=== PATIENT | female | born 1990 | race Caucasian/White ===

== ENCOUNTER 2018-12-04 12:35 | Outpatient (CLI) | payer SELFPAY ==
[2018-12-04 12:45] VITALS: BMI 40.9
--- NOTE | 2018-12-08 22:34 | OB.TRI.NOTE ---
History of Present Illness Date of Service: 12/04/18 Was patient seen by the physician?: No Reason For Visit: DECRECEASED MOVEMENNT Final ANA: 12/13/18 Gestational age: 39 Weeks and 2 Days Allergies acetaminophen [From Tylenol] Adverse Reaction (Verified 12/08/18 07:46) Vomiting ciprofloxacin Adverse Reaction (Verified 12/08/18 07:46) Rash - Pertinent Past Medical History Medical History: Past Medical History (Last Updated 12/08/18 @ 10:48 by Robel Diggs) Endometrial hyperplasia Hypothyroid Impression/Plan NST for false labor
== END 2018-12-04 14:05 | disposition home or self-care (01) ==
LOC: WPOUT 12:42 → WP 12-05 11:16
PROVIDERS: Visit Provider Obstetrics & Gynecology
DX: O47.1 False labor at or after 37 completed weeks of gestation (principal); Z3A.39 39 weeks gestation of pregnancy
CPT/HCPCS: 59025; 59050; 99218; G0378

== ENCOUNTER 2018-12-08 06:52 | Inpatient (IN) | payer SELFPAY ==
[2018-12-08 07:43] VITALS: BMI 41.1
[2018-12-08] MEDS: Lactated Ringers 1,000 ML 50 ML IV ×3 (07:50→18:03)
[2018-12-08 08:11] LABS: Hematocrit 36.9 % (37-47); Hemoglobin 12.9 g/dl (12.0-15.0); Mean Corpuscular Hgb 32.3 pg (27.0-32.0); Mean Corpuscular Volume 92.3 fL (81-99); Mean Platelet Vol. 10.2 fl (6.2-12.0); Platelet Count 291 K/mm3 (150-450); RBC Distribution Width CV 12.8 % (11.6-14.6); RBC Distribution Width SD 42.4 fl (35.1-43.9); White Blood Count 12.8 K/mm3 (4.4-11.0)
[2018-12-08] MEDS: Oxytocin 30 units/NS 500 ml 30 UNITS/500 ML IV.SOLN IV (08:16)
[2018-12-08 08:17] LABS: Scan Indicated on CBC? Y/N NO
--- NOTE | 2018-12-08 10:47 | PCM.HP.OB ---
History Date of Admission: 12/08/18 Final ANA: 12/13/18 Gestational age: 39 Weeks and 2 Days History of this : This is a 28 year-old, G [], P [], at 39 weeks gestational age. Allergies acetaminophen [From Tylenol] Adverse Reaction (Verified 12/08/18 07:46) Vomiting ciprofloxacin Adverse Reaction (Verified 12/08/18 07:46) Rash Home Medications: Home Medications Vit No.130/Iron/Folic [ Tablet] 1 each PO DAILY 12/04/18 Thyroid [[place] Thyroid] 60 mg PO DAILY 12/04/18 Smoking Status: Current every day smoker Number of Fetus(es): 1 Heart Tracin with mod variability, accels, variables TOCO Analysis: Q 3 min but somewhat irregular History Past Pregnancies: Past Pregnancies Delivery Date Name GA/Weeks Outcome Route Weight Infant Gender Labor Length Anesthesia Delivery Location Provider FOB Labs: GBS positive Elevated glucola at 135 - patient declined 3hr GTT. She monitored home blood sugars & the majority were normal. See [facility] H&P for complete PNB Physical Exam General: Alert, Oriented x3 Abdomen: Soft, Non Tender, Non-Distended, Gravid Estimated gestational size: Appropriate for gestational size Presentation: Cephalic Cervix Dilation (cm): 3.5 - AROM clear amniotic fluid. FSE & IUPC placed. Station: -2 Effacement (%): 80 Assessment/Plan This is a 28 year-old, @39&2 for elective induction Admit to L&D Induction - continue pitocin, s/p AROM GBS positive - pcn per protocol EFW - less than 4500g, patient with adequate pelvis Pain - declines epidural at this time Routine care
[2018-12-08] MEDS: fentaNYL-bupivacaine (epidural) 100 ML BAG EPIDURAL ×3 (13:39→23:20)
[2018-12-08 16:05] LABS: Bedside Glucose 77 mg/dL (70-110)
--- NOTE | 2018-12-08 17:30 | PCM.PN.BLA ---
Progress Note S: Patient comfortable with epidural O: cvx - 6-7/80/-1 fhts 140 with mod variability, early & variable decels tocos - 2-3 min A&P: continue induction FWB - monitoring is overall reassuring
[2018-12-08] MEDS: Amnioinfusion- 0.9% NS 1,000 ML IV.SOLN. 1000 ML INTRA-UTER (18:44)
[2018-12-09] MEDS: Oxytocin 30 units/NS 500 ml 30 UNITS/500 ML IV.SOLN 334 UNITS IV (00:01)
--- NOTE | 2018-12-09 00:11 | PCM.OB.VAG ---
Vaginal Delivery Maternal Presentation: Elective Induction Method of Induction: Pitocin, Amniotomy Amniotic Membrane Rupture Type: Artificial Amniotic Fluid Description: Clear Final ANA: 12/13/18 Gestational age: 39 Weeks and 2 Days Date of Procedure: 12/09/18 Pre-Operative Diagnosis: Elective induction at 39&2 Post-Operative Diagnosis: Same Surgery/ Procedure Performed: Spontaneous Vaginal Delivery Type of Anesthesia: Epidural Description of Procedure: Patient prepped & draped when c/c/+2. She pushed to deliver the head. With the next good pushing effort (and with gentle guiding of the head) the shoulders & body delivered. No excess traction placed on the head. placed on maternal abdomen where 3VC clamped & cut in delayed fashion. Placenta delivered with gentle traction. Good uterine tone obtained. Presentation: SERENITY Placental Delivery Description: Expressed Placenta Disposition: [facility] Cord Vessel Description: 3 Vessels Cord Entanglement: None Estimated Blood Loss: 200ml A gender: Female (1 minute): 8 (5 minute): 9 Episiotomy Description: None Laceration: None Medications given after delivery: IV Pitocin
[2018-12-09] MEDS: Oxytocin 30 units/NS 500 ml 30 UNITS/500 ML IV.SOLN 167 UNITS IV (00:31)
[2018-12-09 02:18] VITALS: BP 133/67; PULSE 81; RESP 18; TEMP 36.3
[2018-12-09] MEDS: 0.9% Saline Lock 10 ML Syringe IV (02:45)
[2018-12-09 04:30] VITALS: BP 116/58; PULSE 72; RESP 18; TEMP 37.1
[2018-12-09 07:59] VITALS: BP 117/66; PULSE 79; RESP 24; TEMP 36.8; O2SAT 97
[2018-12-09] MEDS: Ibuprofen 600 MG Tablet PO ×2 (08:10→15:51)
--- NOTE | 2018-12-09 09:31 | PCM.PN.OB ---
Subjective: Denies complaints - Physical Exam General: Alert, Oriented x3 Abdomen: Soft, Non Tender, Non-Distended - ff mid & below umb Extremities: No Calf Tenderness Vital Signs Temp Pulse Resp BP Pulse Ox 98.3 F 79 24 H 117/66 97 12/09/18 07:59 12/09/18 07:59 12/09/18 07:59 12/09/18 07:59 12/09/18 07:59 Oxygen Delivery Method Room Air Weight: 232 lb Body Mass Index (BMI) 41.1 Intake and Output for Last 24 Hours 12/07/18 12/08/18 12/09/18 23:59 23:59 23:59 Intake Total 2339 / 2339 2340 / 2340 Output Total 1300 / 1300 1750 / 1750 Balance 1039 / 1039 590 / 590 Laboratory Tests Past 24 Hrs 12/08/18 07:50 Blood Type B POSITIVE Antibody Screen NEGATIVE POC Glucose 12/08/18 15:55 POC Glucose 77 Medical Necessity - Tobacco Use Smoking Status: Current every day smoker Assessment/Plan PPD#1 Routine care
--- NOTE | 2018-12-09 09:32 | PCM.DCVAG ---
Discharge Diet: No Restrictions Discharge Activity: May Drive, May Shower May resume sexual activity in: 4-6 weeks Weight Bearing Status: Weight bearing as tolerated Additional Instructions: If you experience any of the following, contact your healthcare provider. Bleeding that soaks a pad every hour for 2 hours Fever 100.4 or higher Unrelieved incision or abdominal pain Swelling, redness, discharge or bleeding from your incision or episiotomy site Your incision begins to separate Problems urinating (including inability to urinate or burning while urinating). Visual changes Severe headache Flu-like symptoms Pain or redness in one of both of your breasts Pain, warmth, tenderness or swelling in your legs, especially the calf area Frequent nausea and vomiting Symptoms of depression or anxiety If you experience any of the following, call 911 or go to the nearest Emergency Room. Chest pain Problems breathing Seizure activity Partial or complete paralysis of a body part, slurred speech, weakness or drooping of the face, or a sudden inability to walk or hold your balance Allergies/Adverse Reactions: Allergies acetaminophen [From Tylenol] Adverse Reaction (Verified 12/08/18 07:46) Vomiting ciprofloxacin Adverse Reaction (Verified 12/08/18 07:46) Rash Medications to take at Discharge Vit No.130/Iron/Folic [ Tablet] 1 each PO DAILY 12/04/18 Thyroid [[place] Thyroid] 60 mg PO DAILY 12/04/18 Primary Care Physician: Care Physician,No Primary [Primary Care Provider] - Test Results: Test results from this visit will be discussed in further detail at your follow-up appointment, if applicable.
--- NOTE | 2018-12-09 09:33 | DCINST_ITS ---
Discharge Diet: No Restrictions Discharge Activity: May Drive, May Shower May resume sexual activity in: 4-6 weeks Weight Bearing Status: Weight bearing as tolerated Additional Instructions: If you experience any of the following, contact your healthcare provider. * Bleeding that soaks a pad every hour for 2 hours * Fever 100.4 or higher * Unrelieved incision or abdominal pain * Swelling, redness, discharge or bleeding from your incision or episiotomy site * Your incision begins to separate * Problems urinating (including inability to urinate or burning while urinating). * Visual changes * Severe headache * Flu-like symptoms * Pain or redness in one of both of your breasts * Pain, warmth, tenderness or swelling in your legs, especially the calf area * Frequent nausea and vomiting * Symptoms of depression or anxiety If you experience any of the following, call 911 or go to the nearest Emergency Room. * Chest pain * Problems breathing * Seizure activity * Partial or complete paralysis of a body part, slurred speech, weakness or drooping of the face, or a sudden inability to walk or hold your balance Allergies/Adverse Reactions: Allergies acetaminophen [From Tylenol] Adverse Reaction (Verified 12/08/18 07:46) Vomiting ciprofloxacin Adverse Reaction (Verified 12/08/18 07:46) Rash Medications to take at Discharge Vit No.130/Iron/Folic [ Tablet] 1 each PO DAILY 12/04/18 Thyroid [[place] Thyroid] 60 mg PO DAILY 12/04/18 Primary Care Physician: Care Physician,No Primary [Primary Care Provider] - Test Results: Test results from this visit will be discussed in further detail at your follow- up appointment, if applicable.
[2018-12-09 12:05] VITALS: BP 116/70; PULSE 86; TEMP 36.3; O2SAT 96
[2018-12-09 15:57] VITALS: BP 138/81; PULSE 75; RESP 16; TEMP 36.6
[2018-12-09 20:55] VITALS: BP 127/64; PULSE 84; RESP 16; TEMP 36.6; O2SAT 95
[2018-12-10 02:15] VITALS: BP 118/68; PULSE 77; RESP 14; TEMP 36.6; O2SAT 98
[2018-12-10] MEDS: Thyroid 60 MG Tablet PO (06:40)
[2018-12-10] MEDS: Ibuprofen 600 MG Tablet PO (06:43)
[2018-12-10 09:46] VITALS: BP 122/76; PULSE 74; RESP 16; TEMP 36.6
--- NOTE | 2018-12-10 10:05 | PCM.PN.OB ---
Subjective: pain well controlled, average lochia, ready for d/c - Physical Exam General: Alert, Cooperative, No apparent distress Abdomen: Soft, Non-Distended Vital Signs Temp Pulse Resp BP Pulse Ox 97.9 F 74 16 122/76 H 98 12/10/18 09:46 12/10/18 09:46 12/10/18 09:46 12/10/18 09:46 12/10/18 02:15 Oxygen Delivery Method Room Air Weight: 105.233 kg Body Mass Index (BMI) 41.1 Intake and Output for Last 24 Hours 12/08/18 12/09/18 12/10/18 23:59 23:59 23:59 Intake Total 2339 / 2339 2340 / 2340 Output Total 1300 / 1300 1750 / 1750 Balance 1039 / 1039 590 / 590 Medical Necessity - Tobacco Use Smoking Status: Current every day smoker Assessment/Plan PPD#2 ready for d/c and doing well
== END 2018-12-10 12:50 | disposition home or self-care (01) | DRG 807 ==
PROVIDERS: Admitting Provider Obstetrics & Gynecology; Referring Provider Obstetrics & Gynecology; Visit Provider Obstetrics & Gynecology
DX: O99.834 Other infection carrier state complicating childbirth (principal); O99.334 Smoking (tobacco) complicating childbirth; F17.200 Nicotine dependence, unspecified, uncomplicated; Z37.0 Single live birth; Z3A.39 39 weeks gestation of pregnancy
CPT/HCPCS: 59025; 59050; 82962; 85027; 86850; 86900; 99218; J7030; J7120; A4216; G0378

== ENCOUNTER 2021-02-21 17:21 | Inpatient (IN) | payer SELFPAY ==
[2021-02-21] VITALS (10 sets, daily range): BP systolic 114–134; BP diastolic 57–77; PULSE 81–108; TEMP 36.3–37.6; O2SAT 94–97; BMI 41.8
[2021-02-21] MEDS: 0.9% Saline Lock 10 ML Syringe IV (18:20)
[2021-02-21 18:39] LABS: Absolute Lymphocyte Count 1.71 X10^3/uL (0.83-4.51); Absolute Neutrophil Count 13.8 X10^3/uL (2.0-7.7); Basophil# 0.05 X10^3/uL; Basophil% 0.3 % (0-1); Eosinophil# 0.15 X10^3/uL; Eosinophils% 0.9 % (0-5); Hematocrit 35.3 % (37-47); Hemoglobin 12.3 g/dL (12.0-15.0); Lymphocyte # 1.71 X10^3/ul (4.0); Lymphocyte % 10.3 % (19-41); Mean Corp Hgb Conc 34.8 g/dL (32-36); Mean Corpuscular Hgb 32.1 pg (27.0-32.0); Mean Corpuscular Volume 92.2 fL (81-99); Mean Platelet Vol. 9.9 fl (6.2-12.0); Monocyte# 0.77 X10^3/uL; Monocyte% 4.6 % (0-10); NRBC Flagged by Analyzer 0 % (0-5); Neutrophil # 13.82 X10^3/uL (2.7-7.7); Neutrophil % 83.4 % (47-70); Platelet Count 295 K/mm3 (150-450); RBC Distribution Width CV 12.4 % (11.6-14.6); RBC Distribution Width SD 41.3 fl (35.1-43.9); Red Blood Count 3.83 M/mm3 (4.2-5.4); White Blood Count 16.6 K/mm3 (4.4-11.0)
[2021-02-21] MEDS: 0.9% Normal Saline Single 100 ML IV.SOLN. INTRA-UTER (19:52)
--- NOTE | 2021-02-21 20:17 | PCM.HP.OB ---
- Problem List (1) Hypothyroidism Status: Acute (2) Tobacco use during Status: Acute (3) Obesity affecting Status: Acute (4) History of depression Status: Acute (5) Family history of cardiomyopathy Status: Acute (6) Encounter for induction of labor Status: Acute History Date of Admission: 12/08/18 Final ANA: 02/23/21 Final ANA Source: [place] <20 weeks Gestational age: 39 Weeks and 5 Days History of this : This is a 31 year-old, G [4], P [2012], at 39 weeks gestational age. Presents to labor and delivery for induction of labor due to obesity, hypothyroidism, no formal diabetes screen, and distance from hospital. Tobacco use in . Medical History: Medical History (Last Updated 12/08/18 @ 10:[address] Robel Diggs MD) Endometrial hyperplasia N85.00 Hypothyroid E03.9 Allergies acetaminophen [From Tylenol] Adverse Reaction (Verified 02/21/21 18:06) Vomiting ciprofloxacin Adverse Reaction (Verified 02/21/21 18:06) Rash Home Medications: Home Medications Vit No.130/Iron/Folic [ Tablet] 1 each PO DAILY 12/04/18 Thyroid [[place] Thyroid] 60 mg PO DAILY 12/04/18 Smoking Status: Heavy Smoker (>10/day) NST - FHR Rate Baby A Baseline: 125 Variability:: Moderate Accelerations:: 15 x 15 Decelerations:: None FHR Category:: Category I Uterine Activity:: Irregular History Past Pregnancies: Past Pregnancies Delivery Date Name GA/ Weeks Outcome Route Wt Sex Labor Length Anesthesia Delivery Location Provider FOB Labs: Mom's Problem List Problem Status Onset Code Hypothyroidism Acute E03.9 Tobacco use during Acute O99.330 Obesity affecting Acute O99.210 History of depression Acute Z86.59 Family history of cardiomyopathy Acute Z82.49 Encounter for induction of labor Acute Z34.90 Mom's Labs & Results 02/21/21 02/21/21 18:25 18:25 WBC 16.6 H RBC 3.83 L Hgb 12.3 Hct 35.3 L MCV 92.2 MCH 32.1 H MCHC 34.8 RDW Std Deviation 41.3 RDW Coeff of Karen 12.4 Plt Count 295 MPV 9.9 Immature Gran % (Auto) 0.500 Neut % (Auto) 83.4 H Lymph % (Auto) 10.3 L Towns % (Auto) 4.6 Eos % (Auto) 0.9 Baso % (Auto) 0.3 Absolute Neuts (auto) 13.8 H Absolute Lymphs (auto) 1.71 Nucleated RBC % 0 Blood Type B POSITIVE Antibody Screen NEGATIVE Course Did the patient receive Yes care? Labs Blood Type: B RH: POSITIVE RPR/VDRL/Syphilis Nonreactive Rubella status Immune HbSAg Negative Date Done: 08/26/20 Chlamydia Negative Gonorrhea Negative HIV/AIDS Non-Reactive Group B Strep: Negative Current Obstetrical History Gestational Diabetes No Incompetent Cervix No Infertility No IUGR No Macrosomia No Hypertension/Pre-eclampsia No Placenta Previa/Abruption No PTL/PROM No Uterine anomaly No Oligohydramnios No Polyhydramnios No Multiple gestation No Past Medical History Asthma No Diabetes No Hypertension No Heart disease No Mitral valve prolapse No Neurologic/Seizure disorder/ No Migraines Kidney disease No Liver disease No Varicosities No Clotting disorders/Hx of DVT No Thyroid Dysfunction Yes: hypothyroidism Other medical diseases No Psychiatric disorders No Major trauma No Abnormal PAP smear No Sleep apnea No Mammogram in the last 2 years No Social History Marital Status: Alleged father Alejandro Hx Smoking Yes Smoking Status Heavy Smoker (>10/day) Expected Infant Delivery Method: Spontaneous Vaginal Review of Systems Constitutional: Denies: Chills, Fever, Weight Change HEENT: Denies: Head Aches, Sinus Congestion, Sinus Drainage Cardiovascular: Denies: Chest Pain, Palpitations Respiratory: Denies: Cough, Shortness of breath at rest, Sputum production Gastrointestinal: Denies: Abdominal Pain, Nausea, Vomiting Genitourinary: Denies: Dysuria Musculoskeletal: Denies: Joint Pain, Joint Tenderness Skin: Denies: Rash, Wounds Neurological: Denies: Numbness, Tingling, Focal weakness Psychiatric: Denies: Anxiety, Depression, Homicidal Ideations, Suicidal Ideations Hematologic/ Lymphatic: Denies: Easy Bruising, Easy Bleeding Physical Exam Vitals: Vital Signs Temp Pulse BP Pulse Ox 99.6 F H 94 120/59 L 94 02/21/21 18:15 02/21/21 19:34 02/21/21 19:34 02/21/21 19:34 General: Alert, Oriented x3, No apparent distress HEENT: Atraumatic, Normocephalic Cardiovascular: Regular rate, Regular Rhythm, No murmurs Lungs: Clear to auscultation, Normal air movement, No rhonchi, No wheeze Abdomen: Non Tender, Gravid Extremities:: No edema Neurological: Deep Tendon Reflexes 2+/4 and Symmetrical. Negative for: Clonus VASCULAR ULTRASOUND TECHNOLOGIST: Normal external genitalia Estimated gestational size: Appropriate for gestational size Presentation: Cephalic Cervix Dilation (cm): 1.5 Station: -2 Effacement (%): 60 Assessment/Plan All Active Problems (Last Updated 12/08/18 @ 10:[address] Robel Diggs MD) Hypothyroidism (Acute) Tobacco use during (Acute) Obesity affecting (Acute) History of depression (Acute) Family history of cardiomyopathy (Acute) Encounter for induction of labor (Acute) This is a 31 year-old, G [4], P [2012], at 39 weeks gestational age. A:Induction of labor Obesity Tobacco Use P: 1) Admission to labor and delivery 2) Routine labs 3) Continuous EFM 4) [place] catheter for cervical ripening 5) Will start pitocin once menchaca out 6) notified of induction.
[2021-02-22] VITALS (49 sets, daily range): BP systolic 101–153; BP diastolic 52–79; PULSE 68–112; RESP 16–17; TEMP 36.1–37.2; O2SAT 92–99
[2021-02-22] MEDS: Lactated Ringers 1,000 ML 50 ML IV (01:05)
[2021-02-22] MEDS: Oxytocin 30 units/NS 500 ml 30 UNITS/500 ML IV.SOLN IV (01:05)
[2021-02-22] MEDS: 0.9% Saline Lock 10 ML Syringe IV (01:05)
[2021-02-22] MEDS: Lactated Ringers 500 ML 999 ML IV (03:20)
[2021-02-22] MEDS: fentaNYL-bupivacaine (epidural) 100 ML BAG EPIDURAL ×2 (04:35→08:08)
--- NOTE | 2021-02-22 08:43 | PN.OBGYN_ITS ---
Patient Problems: Active and Suspected Problems (Last Updated 12/08/18 @ 10:[address] Robel Diggs MD) Hypothyroidism (Acute) Tobacco use during (Acute) Obesity affecting (Acute) History of depression (Acute) Family history of cardiomyopathy (Acute) Encounter for induction of labor (Acute) Subjective: Patient seen at bedside. Resting comfortably with epidural anesthesia. Requesting AROM. - Physical Exam Vitals/I&O's: Vital Signs Temp Pulse BP Pulse Ox 98.1 F 90 109/57 L 97 02/22/21 06:15 02/22/21 08:13 02/22/21 08:13 02/22/21 06:15 Weight: 236 lb 5.369 oz Body Mass Index (BMI) 41.8 Intake and Output for Last 24 Hours 02/20/21 02/21/21 02/22/21 23:59 23:59 23:59 Intake Total 2124.66 / 2124.66 Balance 2124.66 / 2124.66 General: Alert, Oriented x3, Cooperative HEENT: Atraumatic Oral: Moist Mucosa Neck: Supple Lungs: Normal air movement Cardiovascular: Regular rate Abdomen: Soft, Non Tender Skin: No rashes Musculoskeletal: No Tenderness to Palpation of Joints or Extremities Neurological: Cranial nerves II-XII grossly intact Laboratory Results 02/21/21 18:25: WBC 16.6 H, RBC 3.83 L, Hgb 12.3, Hct 35.3 L, MCV 92.2, MCH 32.1 H, MCHC 34.8, RDW Std Deviation 41.3, RDW Coeff of Karen 12.4, Plt Count 295, MPV 9.9, Immature Gran % (Auto) 0.500, Neut % (Auto) 83.4 H, Lymph % (Auto) 10.3 L, [place] % (Auto) 4.6, Eos % (Auto) 0.9, Baso % (Auto) 0.3, Absolute Neuts (auto) 13.8 H, Absolute Lymphs (auto) 1.71, Nucleated RBC % 0 02/21/21 18:25: Blood Type B POSITIVE, Antibody Screen NEGATIVE Current Medications Al Hydroxide/Mg Hydroxide (Mag Hydrox/Al Hydrox/Simeth 30 Ml Udc) 15 - 30 ml PO Q4H PRN PRN PRN Reason: INDIGESTION Citric Acid/Sodium Citrate (Sodium Citrate/Citric Acid 30 Ml Udc) 30 ml PO X1 PRN PRN Reason: Section Ephedrine Sulfate (Ephedrine Sulfate 50 Mg/Ml Ampul) 10 mg IV Q10M PRN PRN Reason: hypotension Ephedrine Sulfate (Ephedrine Sulfate 50 Mg/Ml Ampul) 10 mg IM Q30M PRN PRN Reason: hypotension Fentanyl Citrate (Fentanyl 100 Mcg/2 Ml Ampul) 25 - 50 mcg IV Q2H PRN PRN PRN Reason: Pain Score 4-10 Fentanyl/Bupivacaine/Sodium Chlor (Fentanyl-Bupivacaine (Epidural) 100 Ml Bag) 0 ml EPIDURAL UD [facility]; Protocol Last Admin: 02/22/21 08:08 Dose: 100 ml Documented by: Lactated Ringer's () 500 mls @ 999 mls/hr IV .Q31M PRN PRN Reason: Epidural Last Infusion: 02/22/21 03:51 Dose: Infused Documented by: Lactated Ringer's () 500 mls @ 999 mls/hr IV .Q31M PRN PRN Reason: Corrective Measures Lactated Ringer's () 1,000 mls @ 50 mls/hr IV .Q20H [facility] Last Infusion: 02/22/21 05:10 Dose: 200 mls/hr Documented by: Oxytocin/Sodium Chloride () 30 units in 500 mls @ 2 mls/hr IV .Q250H [facility] Last Infusion: 02/22/21 03:15 Dose: 6 mls/hr Documented by: Nalbuphine HCl (Nalbuphine 10 Mg/Ml Ampul) 5 mg IV Q3H PRN PRN PRN Reason: ITCHING Naloxone HCl (Naloxone 0.4 Mg/Ml Syringe) 0.02 mg IV Q1M PRN PRN Reason: RR <10 and pt unresponsive Ondansetron HCl (Ondansetron 4 Mg/2 Ml Vial) 4 mg IV Q4H PRN PRN PRN Reason: NAUSEA Prochlorperazine Edisylate (Prochlorperazine 10 Mg/2 Ml Vial) 10 mg IV Q6H PRN PRN PRN Reason: NAUSEA Sodium Chloride (0.9% Saline Lock 10 Ml Syringe) 10 - 40 ml IV X1 PRN PRN Reason: SALINE FLUSH Last Admin: 02/22/21 01:05 Dose: 10 ml Documented by: Medical Necessity - Tobacco Use Smoking Status: Heavy Smoker (>10/day) Assessment/Plan All Active Problems (Last Updated 12/08/18 @ 10:[address] Robel Diggs MD) Hypothyroidism (Acute) Tobacco use during (Acute) Obesity affecting (Acute) History of depression (Acute) Family history of cardiomyopathy (Acute) Encounter for induction of labor (Acute) at 39.6 weeks gestation for induction of labor Category 1 tracing NST reactive Epidural anesthesia Pitocin IV and titrate per policy AROM for large amount of clear fluid Anticipate Dr. Diggs updated
[2021-02-22] MEDS: Lactated Ringers 1,000 ML 200 ML IV (10:36)
[2021-02-22] MEDS: Amnioinfusion- 0.9% NS 1,000 ML IV.SOLN. 300 ML INTRA-UTER (11:30)
--- NOTE | 2021-02-22 12:07 | PCM.PN.BLA ---
Progress Note S: Patient comfortable with epidural O: Cvx - 7.5/90/-1 fhts - 120 with moderate variability & accels, variables (mostly moderate but s/p some deep) tocos - Q4-5 minutes A&P: FM remains overall reassuring Pitocin restarted for induction Continue close monitoring Plan of care discussed with patient & her STROKE Vital Signs/Narrative: Vital Signs Pulse BP 02/22/21 10:41 77 101/53 L 02/22/21 10:03 96 111/66 02/22/21 08:13 90 109/57 L
[2021-02-22] MEDS: Oxytocin 30 units/NS 500 ml 30 UNITS/500 ML IV.SOLN 334 UNITS IV (13:14)
--- NOTE | 2021-02-22 13:34 | PCM.OPRPT ---
Vaginal Delivery Maternal Presentation: Elective Induction Method of Induction: Pitocin, Greco Bulb, Amniotomy Medical Reason for Induction: Maternal Medical Condition: list: - Hypothryoidism, Declined GDM screening Amniotic Fluid Description: Clear Final ANA: 02/23/21 Gestational age: 39 Weeks and 6 Days Date of Procedure: 02/22/21 Pre-Operative Diagnosis: Desires elective induction Post-Operative Diagnosis: Same Surgery/ Procedure Performed: Spontaneous Vaginal Delivery Type of Anesthesia: Epidural Description of Procedure: Pushed with patient in the room. She was prepped & draped in stirrups when C/C/+2. Patient pushed to deliver head. head gently guided to allow delivery of anterior and posterior shoulders. No excess traction placed on the head. Shoulders & body delivered. placed on maternal abdomen where 3VC clamped & cut in delayed fashion. Placenta delivered with gentle traction. Good uterine obtained. Presentation: SERENITY Placental Delivery Description: Expressed Placenta Disposition: [facility] Cord Vessel Description: 3 Vessels Cord Entanglement: None Estimated Blood Loss: 300ml A gender: Female - [place] (1 minute): 8 (5 minute): 9 Episiotomy Description: None Laceration: None Medications given after delivery: IV Pitocin Complications: None
[2021-02-22] MEDS: Ibuprofen 600 MG Tablet PO ×2 (14:33→21:59)
[2021-02-23 04:00] VITALS: BP 124/58; PULSE 74; RESP 16; TEMP 36.3
[2021-02-23] MEDS: Ibuprofen 600 MG Tablet PO (04:00)
[2021-02-23 07:48] VITALS: BP 114/71; PULSE 67; RESP 18; TEMP 36.3; O2SAT 98
--- NOTE | 2021-02-23 11:03 | PCM.PN.OB ---
Patient Problems: Active and Suspected Problems (Last Updated 12/08/18 @ 10:[address] Robel Diggs MD) Hypothyroidism (Acute) Tobacco use during (Acute) Obesity affecting (Acute) History of depression (Acute) Family history of cardiomyopathy (Acute) Encounter for induction of labor (Acute) Subjective: Patient seen at bedside. Up ambulating in room. Denies any pain. Voiding and passing flatus. Breast and bottle feeding both. Desires discharge home today. - Physical Exam Vitals/I&O's: Vital Signs Temp Pulse Resp BP Pulse Ox 97.4 F L 67 18 114/71 98 02/23/21 07:48 02/23/21 07:48 02/23/21 07:48 02/23/21 07:48 02/23/21 07:48 Oxygen Delivery Method Room Air Weight: 236 lb 5.369 oz Body Mass Index (BMI) 41.8 Intake and Output for Last 24 Hours 02/21/21 02/22/21 02/23/21 23:59 23:59 23:59 Intake Total 3976.33 / 3976.33 Balance 3976.33 / 3976.33 General: Alert, Oriented x3 HEENT: Atraumatic Oral: Moist Mucosa Neck: Supple Lungs: Normal air movement Cardiovascular: Regular Rhythm Abdomen: Soft, Non Tender, Passing Flatus Skin: No rashes Neurological: Cranial nerves II-XII grossly intact Psych/Mental Status: Normal Affect, Appropriate Current Medications Acetaminophen (Acetaminophen 500 Mg Tablet) 1,000 mg PO Q8H PRN PRN PRN Reason: Pain Score 1-10 Bisacodyl (Bisacodyl 10 Mg Suppository) 10 mg RC UD PRN PRN Reason: If no BM Dibucaine (Dibucaine 30 Gm Tube) 1 applic TOPICAL TID PRN PRN; Protocol PRN Reason: Discomfort Hydrocortisone (Hydrocortisone 2.5% Crm) 1 applic TOPICAL TID PRN PRN; Protocol PRN Reason: Discomfort Ibuprofen (Ibuprofen 600 Mg Tablet) 600 mg PO Q6H PRN PRN PRN Reason: Pain Score 1-10 Last Admin: 02/23/21 04:00 Dose: 600 mg Documented by: Methylergonovine Maleate (Methylergonovine 0.2 Mg/Ml Ampul) 0.2 mg IM X1 PRN PRN Reason: Excess bleeding/uterine atony Ondansetron HCl (Ondansetron 4 Mg/2 Ml Vial) 4 mg IV Q4H PRN PRN PRN Reason: Nausea Senna/Docusate Sodium (Senna/Docusate Sodium 1 Tablet) 1 - 2 tablet PO DAILY PRN PRN PRN Reason: Constipation Simethicone (Simethicone 80 Mg Tablet) 80 mg PO PCHS PRN PRN Reason: Indigestion/Stomach pain Sodium Chloride (0.9% Saline Lock 10 Ml Syringe) 5 - 15 ml IV UD PRN PRN Reason: SALINE FLUSH Medical Necessity - Tobacco Use Smoking Status: Heavy Smoker (>10/day) Assessment/Plan All Active Problems (Last Updated 12/08/18 @ 10:[address] Robel Diggs MD) Hypothyroidism (Acute) Tobacco use during (Acute) Obesity affecting (Acute) History of depression (Acute) Family history of cardiomyopathy (Acute) Encounter for induction of labor (Acute) PPD #1 - intact Routine care Pain control Discharge home with follow up in office
--- NOTE | 2021-02-23 11:05 | DCINST_ITS ---
Discharge Diet: No Restrictions Discharge Activity: Return to Normal Activity May resume sexual activity in: 6-8 weeks Additional Instructions: If you experience any of the following, contact your healthcare provider. * Bleeding that soaks a pad every hour for 2 hours * Fever 100.4 or higher * Unrelieved incision or abdominal pain * Swelling, redness, discharge or bleeding from your incision or episiotomy site * Your incision begins to separate * Problems urinating (including inability to urinate or burning while urinating). * Visual changes * Severe headache * Flu-like symptoms * Pain or redness in one of both of your breasts * Pain, warmth, tenderness or swelling in your legs, especially the calf area * Frequent nausea and vomiting * Symptoms of depression or anxiety If you experience any of the following, call 911 or go to the nearest Emergency Room. * Chest pain * Problems breathing * Seizure activity * Partial or complete paralysis of a body part, slurred speech, weakness or drooping of the face, or a sudden inability to walk or hold your balance Allergies/Adverse Reactions: Allergies acetaminophen [From Tylenol] Adverse Reaction (Verified 02/21/21 18:06) Vomiting ciprofloxacin Adverse Reaction (Verified 02/21/21 18:06) Rash Medications to take at Discharge Vit No.130/Iron/Folic [ Tablet] 1 each PO DAILY 12/04/18 Thyroid [[place] Thyroid] 60 mg PO DAILY 12/04/18 Please Follow Up With: Robel Diggs MD When: 2 weeks virtual/ 6 weeks in office Primary Care Physician: Care Physician,No Primary [Primary Care Provider] - Test Results: Test results from this visit will be discussed in further detail at your follow- up appointment, if applicable.
--- NOTE | 2021-02-23 11:05 | PCM.DCVAG ---
Discharge Diet: No Restrictions Discharge Activity: Return to Normal Activity May resume sexual activity in: 6-8 weeks Additional Instructions: If you experience any of the following, contact your healthcare provider. Bleeding that soaks a pad every hour for 2 hours Fever 100.4 or higher Unrelieved incision or abdominal pain Swelling, redness, discharge or bleeding from your incision or episiotomy site Your incision begins to separate Problems urinating (including inability to urinate or burning while urinating). Visual changes Severe headache Flu-like symptoms Pain or redness in one of both of your breasts Pain, warmth, tenderness or swelling in your legs, especially the calf area Frequent nausea and vomiting Symptoms of depression or anxiety If you experience any of the following, call 911 or go to the nearest Emergency Room. Chest pain Problems breathing Seizure activity Partial or complete paralysis of a body part, slurred speech, weakness or drooping of the face, or a sudden inability to walk or hold your balance Allergies/Adverse Reactions: Allergies acetaminophen [From Tylenol] Adverse Reaction (Verified 02/21/21 18:06) Vomiting ciprofloxacin Adverse Reaction (Verified 02/21/21 18:06) Rash Medications to take at Discharge Vit No.130/Iron/Folic [ Tablet] 1 each PO DAILY 12/04/18 Thyroid [[place] Thyroid] 60 mg PO DAILY 12/04/18 Please Follow Up With: Robel Diggs MD When: 2 weeks virtual/ 6 weeks in office Primary Care Physician: Care Physician,No Primary [Primary Care Provider] - Test Results: Test results from this visit will be discussed in further detail at your follow-up appointment, if applicable.
[2021-02-23 11:35] VITALS: BP 112/59; PULSE 73; RESP 18; TEMP 36.5
== END 2021-02-23 15:10 | disposition home or self-care (01) | DRG 807 ==
PROVIDERS: Admitting Provider Advanced Practice Midwife; Visit Provider Advanced Practice Midwife
DX: O99.284 Endocrine, nutritional and metabolic diseases complicating childbirth (principal); Z37.0 Single live birth; E03.9 Hypothyroidism, unspecified; E66.9 Obesity, unspecified; O99.214 Obesity complicating childbirth; F17.200 Nicotine dependence, unspecified, uncomplicated; O99.334 Smoking (tobacco) complicating childbirth; Z3A.39 39 weeks gestation of pregnancy
CPT/HCPCS: 59025; 59050; 85025; 86850; 86900; 86901; 99218; J7030; J7120; A4216; G0378

== ENCOUNTER → 2022-07-22 | Outpatient (CLI) | payer OTHER, SELFPAY ==
[2022-07-22 15:40] LABS: T4 Free Direct 1.06 ng/dL (0.76-1.46); Thyroid Stim Hormone (TSH) 0.01 uIU/mL (0.358-3.74)
== END | disposition home or self-care (01) ==
PROVIDERS: Referring Provider Internal Medicine Endocrinology, Diabetes & Metabolism; Visit Provider Internal Medicine Endocrinology, Diabetes & Metabolism
DX: E03.9 Hypothyroidism, unspecified (principal)
CPT/HCPCS: 36415; 84439; 84443; 84481

== ENCOUNTER → 2022-09-17 | Outpatient (CLI) | payer OTHER, SELFPAY ==
[2022-09-17 16:01] LABS: T4 Free Direct 1.09 ng/dL (0.76-1.46); Thyroid Stim Hormone (TSH) 0.05 uIU/mL (0.358-3.74)
== END | disposition home or self-care (01) ==
LOC: BIMLAB 12:15
PROVIDERS: Referring Provider Internal Medicine Endocrinology, Diabetes & Metabolism; Visit Provider Internal Medicine Endocrinology, Diabetes & Metabolism
DX: E03.9 Hypothyroidism, unspecified (principal)
CPT/HCPCS: 36415; 84439; 84443

== ENCOUNTER → 2022-12-29 | Outpatient (CLI) | payer OTHER, SELFPAY ==
[2022-12-29 12:54] LABS: T4 Free Direct 1.26 ng/dL (0.76-1.46); Thyroid Stim Hormone (TSH) 0.53 uIU/mL (0.358-3.74)
== END | disposition home or self-care (01) ==
PROVIDERS: Referring Provider Internal Medicine Endocrinology, Diabetes & Metabolism; Visit Provider Internal Medicine Endocrinology, Diabetes & Metabolism
DX: E03.9 Hypothyroidism, unspecified (principal)
CPT/HCPCS: 36415; 84439; 84443

== ENCOUNTER → 2023-08-24 | Outpatient (CLI) | payer OTHER, SELFPAY ==
[2023-08-24 12:42] LABS: T4 Free Direct 1.04 ng/dL (0.76-1.46); Thyroid Stim Hormone (TSH) 0.65 uIU/mL (0.358-3.74)
== END | disposition home or self-care (01) ==
LOC: BIMLAB 09:19
PROVIDERS: Visit Provider Internal Medicine Endocrinology, Diabetes & Metabolism
DX: E03.9 Hypothyroidism, unspecified (principal)
CPT/HCPCS: 36415; 84439; 84443

== ENCOUNTER → 2024-05-12 | Outpatient (CLI) | payer OTHER, SELFPAY ==
[2024-05-16 03:15] LABS: Estradiol 339.6 pg/mL; Follicle Stimulating Hormone 0.9 mIU/mL; Thyroid Stim Hormone (TSH) 1.65 uIU/mL (0.358-3.74)
== END | disposition home or self-care (01) ==
LOC: BIMLAB 10:06
PROVIDERS: Visit Provider Internal Medicine Endocrinology, Diabetes & Metabolism
DX: E03.8 Other specified hypothyroidism (principal); E06.3 Autoimmune thyroiditis; N91.4 Secondary oligomenorrhea
CPT/HCPCS: 36415; 82670; 83001; 83002; 84439; 84443

== ENCOUNTER → 2025-02-28 | Outpatient (CLI) | payer OTHER, SELFPAY | END | disposition home or self-care (01) | LOC: BIMLAB 10:03 | PROVIDERS: Referring Provider Internal Medicine Endocrinology, Diabetes & Metabolism; Visit Provider Internal Medicine Endocrinology, Diabetes & Metabolism | DX: E03.8 Other specified hypothyroidism (principal); E06.3 Autoimmune thyroiditis | CPT/HCPCS: 36415; 84439; 84443 ==